=== PATIENT | female | born 1980 | race Hispanic/Latino ===

== ENCOUNTER 2021-01-24 10:30 | Outpatient (CLI) | payer OTHER ==
[2021-01-24 18:35] LABS: SARS-CoV-2 PCR by NAA Not Detected (NotDetected)
== END 2021-01-24 10:31 | disposition home or self-care (01) ==
LOC: CSHLAB 10:30
PROVIDERS: ATTEND Family Medicine
DX: Z20.822 Contact with and (suspected) exposure to COVID-19 (principal)
CPT/HCPCS: 87635; U0003; U0005

== ENCOUNTER 2021-01-27 11:09 | Inpatient (IN) | payer MEDICAID, OTHER ==
[2021-01-27] MEDS ORDERED: CEFAZOLIN 2 GM in Premix Bag 1 BAG IVPB SCH (11:42)
[2021-01-27] MEDS ORDERED: Bicitra 30 ML UDCUP PO PRN (11:42)
[2021-01-27] MEDS ORDERED: Ondansetron PF 4 MG/2 ML Vial IVP PRN ×2 (11:42→17:14)
[2021-01-27] MEDS ORDERED: Famotidine/PF 20 mg/2ml Vial SLOW IVP PRN (11:42)
[2021-01-27] MEDS ORDERED: hydrALAZINE 20 MG/ML VIAL SLOW IVP PRN ×2 (11:42→17:14)
[2021-01-27] MEDS ORDERED: Promethazine HCl 25 MG/ML VIAL IM PRN ×2 (11:42→17:14)
[2021-01-27 11:44] VITALS: BMI 33.1
[2021-01-27] MEDS: Lactated Ringer's 1,000 ML IV SCH ×2 (11:46→12:18)
[2021-01-27 12:20] LABS: Hemoglobin 12.9 g/dL (12.0-15.5); Mean Corpuscular HGB CONC 32.7 g/dL (32.0-36.0); Mean Corpuscular Hemoglobin 27.8 pg (27.0-33.0); Mean Corpuscular Volume 84.9 fl (81.6-98.3); Mean Platelet Volume 11.1 fl (7.4-10.4); Platelet Count 194 10x3/uL (150-450); RBC Distribution Width 15.7 % (11.5-14.5); Red Blood Cell (RBC) Count 4.64 10x6/uL (3.90-5.03); White Blood Cell (WBC) Count 9.2 10x3/uL (3.5-10.5)
[2021-01-27 13:22] LABS: Hep B Surf Ag Non-Reactive S/CO (NonReactive)
[2021-01-27] MEDS ORDERED: Carboprost 250 MCG/ML AMP ONE (13:22)
[2021-01-27 13:23] LABS: Syphilis Antibody Nonreactive (Nonreactive); Syphilis Antibody Index 0.03 S/CO (<1.00 Non-Reactive)
[2021-01-27] MEDS ORDERED: Misoprostol 200 MCG TAB ONE (13:23)
[2021-01-27] MEDS ORDERED: Methylergonovine 0.2 MG/ML VIAL ONE (13:23)
[2021-01-27 13:28] LABS: HBSAg Index 0.16 S/CO (0-0.99)
[2021-01-27] MEDS ORDERED: Morphine PF 10 MG/10 ML VIAL ONE (13:39)
[2021-01-27] MEDS ORDERED: Ondansetron PF 4 MG/2 ML Vial ONE (13:40)
[2021-01-27] MEDS ORDERED: PHENYLEPHRINE-NS 100 MCG/ML 10 ML SYRINGE ONE (13:40)
[2021-01-27] MEDS ORDERED: Dexamethasone 4 mg/ml Vial ONE (13:40)
[2021-01-27] MEDS ORDERED: ePHEDrine Sulfate 50 MG/10 ML VIAL ONE (13:40)
[2021-01-27] MEDS ORDERED: Oxytocin 10 UNITS/ML VIAL ONE (13:42)
[2021-01-27] MEDS ORDERED: Ketorolac Tromethamine 30 MG/ML VIAL ONE (14:42)
[2021-01-27] MEDS ORDERED: NS w/ Oxytocin 30 units 500 ML ONE (16:11)
[2021-01-27] MEDS ORDERED: Simethicone Chewable 80 MG TAB PO PRN (17:14)
[2021-01-27] MEDS ORDERED: diphenhydrAMINE 25 MG CAP PO PRN (17:14)
[2021-01-27] MEDS ORDERED: Meperidine HCl/PF 25 MG/ML VIAL IM PRN (17:14)
[2021-01-27] MEDS ORDERED: Bisacodyl 10 MG SUPP PR PRN (17:14)
[2021-01-27] MEDS ORDERED: Adacel (T-DAP) 0.5 ML SYRINGE IM ONE (17:14)
[2021-01-27] MEDS ORDERED: Lanolin Ointment 7 GM TUBE TOP PRN (17:14)
[2021-01-27] MEDS: Ketorolac Tromethamine 30 MG/ML VIAL IVP SCH (19:50)
[2021-01-27] MEDS: Docusate Calcium (SURFAK) 240 MG CAP PO SCH (22:39)
[2021-01-28] MEDS: Ketorolac Tromethamine 30 MG/ML VIAL IVP SCH ×2 (00:34→05:30)
[2021-01-28 06:25] LABS: Hemoglobin 11.1 g/dL (12.0-15.5); Mean Corpuscular HGB CONC 33.2 g/dL (32.0-36.0); Mean Corpuscular Hemoglobin 28.5 pg (27.0-33.0); Mean Corpuscular Volume 85.6 fl (81.6-98.3); Mean Platelet Volume 10.5 fl (7.4-10.4); Platelet Count 165 10x3/uL (150-450); RBC Distribution Width 15.5 % (11.5-14.5); White Blood Cell (WBC) Count 9.1 10x3/uL (3.5-10.5)
[2021-01-28] MEDS: Ferrous Sulfate 325 MG TAB PO SCH ×2 (09:20→16:59)
[2021-01-28] MEDS: Docusate Calcium (SURFAK) 240 MG CAP PO SCH ×2 (09:25→21:57)
[2021-01-28] MEDS: HYDROcodone/Acetaminophen 5/325 mg Tablet PO PRN ×3 (10:45→21:57)
[2021-01-28] MEDS: Ibuprofen 800 MG TAB PO SCH (22:00)
[2021-01-29] MEDS: HYDROcodone/Acetaminophen 5/325 mg Tablet PO PRN ×3 (02:04→17:57)
[2021-01-29] MEDS: Ibuprofen 800 MG TAB PO SCH ×3 (05:03→21:40)
[2021-01-29] MEDS: Ferrous Sulfate 325 MG TAB PO SCH ×2 (09:12→16:24)
[2021-01-29] MEDS: Docusate Calcium (SURFAK) 240 MG CAP PO SCH ×2 (09:13→21:41)
[2021-01-30] MEDS: Ibuprofen 800 MG TAB PO SCH (04:24)
[2021-01-30] MEDS: Ferrous Sulfate 325 MG TAB PO SCH (07:19)
[2021-01-30 08:05] VITALS: BP 129/68; TEMP 98
[2021-01-30] MEDS: Docusate Calcium (SURFAK) 240 MG CAP PO SCH (08:37)
== END 2021-01-30 12:40 | disposition home or self-care (01) | DRG 788 ==
LOC: CSHLD 11:09 → CSHPP 18:12
PROVIDERS: ADMIT Family Medicine; ATTEND Family Medicine
PROC: 10D00Z1 Extraction of Products of Conception, Low, Open Approach (ICD-10-PCS; principal; 2021-01-23)
DX: O44.03 Complete placenta previa NOS or without hemorrhage, third trimester (principal); Z3A.36 36 weeks gestation of pregnancy; Z37.0 Single live birth
CPT/HCPCS: 36415; 51702; 85027; 86780; 86850; 86900; 86901; 87340; J0690; J1100; J1885; J2270; J2405; J2590; S0028